=== PATIENT | male | born 1940 | race Caucasian/White ===

== ENCOUNTER 2021-11-19 16:27 | Inpatient (IN) | payer OTHER ==
[~2021-11-19] VITALS: Ht 185.4 cm; Wt 113.9 kg
[2021-11-19] MEDS ORDERED: ASPI-1420 PO (16:52)
[2021-11-19] MEDS ORDERED: METF-440 PO (16:52)
[2021-11-19] MEDS ORDERED: CHLO473M5 MM (16:52)
[2021-11-19] MEDS ORDERED: DOCU-141 PO (16:52)
[2021-11-19] MEDS ORDERED: HYDR100T27 PO (16:52)
[2021-11-19] MEDS ORDERED: LISI40TA13 PO (16:52)
[2021-11-19] MEDS ORDERED: ACET-2605 PO (16:52)
[2021-11-19] MEDS ORDERED: MINE3.5O EACHEYE (16:52)
[2021-11-19] MEDS ORDERED: MAGN400O6 PO (16:52)
[2021-11-19] MEDS ORDERED: AMLO10TA4 PO (16:52)
[2021-11-19] MEDS ORDERED: ATOR40TA PO (16:52)
[2021-11-19] MEDS ORDERED: POLY15DR40 EACHEYE (16:52)
[2021-11-19] MEDS ORDERED: CRAN425C6 PO (16:52)
[2021-11-19 17:19] LABS: BASOPHILS # (AUTO) 0.1 K/uL (0.0-0.2); BASOPHILS % (AUTO) 0.8 % (0.0-2.0); HEMATOCRIT 33 % (39-51); HEMOGLOBIN 10.8 g/dL (13.5-17.5); LYMPHOCYTES # (AUTO) 2.9 K/uL (0.8-4.8); LYMPHOCYTES % (AUTO) 20.2 % (20.0-44.0); MEAN CORPUSCULAR HGB CONC 33 g/dl (31.0-36.0); MEAN CORPUSCULAR VOLUME 86 fL (80-96); MONOCYTES # (AUTO) 1.6 K/uL (0.1-1.30); MONOCYTES % (AUTO) 11.3 % (2.0-12.0); NEUTROPHILS # (AUTO) 9.3 K/uL (1.8-8.9); NEUTROPHILS % (AUTO) 65.7 % (43.0-81.0); PLATELET COUNT (AUTO) 253 K/uL (150-450); RED BLOOD CELL COUNT(AUTO) 3.83 MIL/uL (4.5-6.0); WHITE BLOOD COUNT (AUTO) 14.1 K/uL (4.3-11.0)
[2021-11-19 17:28] LABS: BILIRUBIN,URINE NEGATIVE (NEGATIVE); COLOR,URINE YELLOW (YELLOW); LEUKOCYTE ESTERASE ,URINE NEGATIVE (NEGATIVE); NITRITE, URINE NEGATIVE (NEGATIVE); PROTEIN,URINE 100 mg/dl (NEGATIVE); UGLUCOSE NEGATIVE (NEGATIVE); UROBILINOGEN,URINE 0.2 EU/dL (0.2)
[2021-11-19 17:40] LABS: ALANINE AMINOTRANSFERASE 9 U/L (12-78); ALBUMIN 3.7 g/dL (3.4-5.0); ALKALINE PHOSPHATASE 78 U/L (46-116); ASPARTATE AMINOTRANSFERASE 14 U/L (15-37); BILIRUBIN,DIRECT 0.1 mg/dL (0.0-0.2); BILIRUBIN,TOTAL 0.4 mg/dL (0.2-1.0); CALCIUM, SERUM 9.4 mg/dL (8.5-10.1); CARBON DIOXIDE 26 mmol/L (21-32); CHLORIDE 102 mmol/L (98-107); CREATININE 1.8 mg/dL (0.6-1.3); GLUCOSE 152 mg/dL (74-106); POTASSIUM 4.6 mmol/L (3.5-5.1); SODIUM SERUM 138 mmol/L (136-145); TOTAL PROTEIN, SERUM 7.5 g/dL (6.4-8.2); UREA NITROGEN, BLOOD 33 mg/dL (7-18)
[2021-11-19] MEDS ORDERED: hydrALAZINE HCL IV 20 MG VIAL IV ONE ×2 (21:00→23:20)
[2021-11-19] MEDS ORDERED: hydrALAZINE HCL IV 20 MG VIAL ONE (21:03)
[2021-11-19] MEDS ORDERED: hydrALAZINE HCL IV 20 MG VIAL IV PRN (21:30)
[2021-11-19] MEDS ORDERED: ACETAMINOPHEN 325 MG TABLET PO PRN (21:30)
[2021-11-19] MEDS ORDERED: ONDANSETRON HCL/PF 4 MG/2 ML VIAL IVP PRN (21:30)
[2021-11-19] MEDS ORDERED: MORPHINE SULFATE INJ 2 MG/ML DISP.SYRIN IV PRN (21:30)
[2021-11-19] MEDS ORDERED: Z GUARD REMEDY 4 OZ OINT TP PRN (21:30)
[2021-11-19 22:27] VITALS: BP 179/65
[2021-11-19 22:30] VITALS: BP 195/114
[2021-11-19 23:00] VITALS: BP 209/80
[2021-11-19 23:30] VITALS: BP 216/99
[2021-11-20] VITALS (63 sets, daily range): BP systolic 115–196; BP diastolic 51–118
[2021-11-20] MEDS ORDERED: CLONIDINE HCL 0.1 MG TABLET PO PRN (01:00)
[2021-11-20] MEDS ORDERED: ACETAMINOPHEN ES 500 MG TABLET PO PRN (01:00)
[2021-11-20] MEDS ORDERED: DEXTROSE 50%-WATER 50 ML DISP.SYRIN IV PRN (01:00)
[2021-11-20] MEDS ORDERED: MAGNESIUM HYDROXIDE 30 ML UDC PO PRN (01:00)
[2021-11-20] MEDS: LOSARTAN POTASSIUM 50 MG TABLET PO SCH ×2 (01:06→08:12)
[2021-11-20 04:20] LABS: BASOPHILS # (AUTO) 0.1 K/uL (0.0-0.2); BASOPHILS % (AUTO) 0.9 % (0.0-2.0); EOSINOPHILS % (AUTO) 3.9 % (0.0-6.0); HEMATOCRIT 32 % (39-51); HEMOGLOBIN 10.7 g/dL (13.5-17.5); LYMPHOCYTES # (AUTO) 2.4 K/uL (0.8-4.8); LYMPHOCYTES % (AUTO) 23.7 % (20.0-44.0); MEAN CORPUSCULAR HGB CONC 33 g/dl (31.0-36.0); MEAN CORPUSCULAR VOLUME 87 fL (80-96); MONOCYTES # (AUTO) 1.2 K/uL (0.1-1.30); MONOCYTES % (AUTO) 11.3 % (2.0-12.0); NEUTROPHILS # (AUTO) 6.1 K/uL (1.8-8.9); NEUTROPHILS % (AUTO) 60.2 % (43.0-81.0); PLATELET COUNT (AUTO) 258 K/uL (150-450); RED BLOOD CELL COUNT(AUTO) 3.71 MIL/uL (4.5-6.0); WHITE BLOOD COUNT (AUTO) 10.2 K/uL (4.3-11.0)
[2021-11-20 04:34] LABS: CALCIUM, SERUM 9.1 mg/dL (8.5-10.1); CARBON DIOXIDE 28 mmol/L (21-32); CHLORIDE 104 mmol/L (98-107); CREATININE 1.6 mg/dL (0.6-1.3); GLUCOSE 140 mg/dL (74-106); MAGNESIUM 1.9 mg/dL (1.8-2.4); PHOSPHORUS 4.2 mg/dL (2.5-4.9); POTASSIUM 3.8 mmol/L (3.5-5.1); SODIUM SERUM 140 mmol/L (136-145); UREA NITROGEN, BLOOD 31 mg/dL (7-18)
[2021-11-20 04:47] LABS: THYROID STIMULATING HORMONE 7.542 uIU/mL (0.358-3.74)
[2021-11-20] MEDS: BLOOD SUGAR DIAGNOSTIC 1 EACH STRIP IN SCH ×4 (08:05→21:21)
[2021-11-20] MEDS: LISINOPRIL (20MG) 20 MG TABLET PO SCH (08:12)
[2021-11-20] MEDS: CHLORHEXIDINE GLUCONATE 15 ML UDC MM SCH (08:13)
[2021-11-20] MEDS: DOCUSATE SODIUM 100 MG CAPSULE PO SCH (08:13)
[2021-11-20] MEDS: POLYVINYL ALCOHOL 15 ML BOTTLE EACHEYE SCH ×2 (08:13→17:23)
[2021-11-20] MEDS: METFORMIN 500 MG TABLET PO SCH ×2 (08:19→17:23)
[2021-11-20] MEDS: AMLODIPINE BESYLATE 10 MG TABLET PO SCH (08:25)
[2021-11-20] MEDS: INSULIN REGULAR, HUMAN 100 UNIT/ML 3 ML VIAL SQ PRN ×3 (08:28→21:21)
[2021-11-20] MEDS: ASPIRIN EC 81 MG TABLET.DR PO SCH (08:44)
[2021-11-20] MEDS ORDERED: Medication Not On Formulary EA (Cranberry Extract (Cranberry) 425 MG) PO SCH (09:00)
[2021-11-20] MEDS ORDERED: hydrALAZINE HCL 50 MG TABLET PO SCH (09:00)
[2021-11-20] MEDS ORDERED: PANTOPRAZOLE 40 MG VIAL IV SCH (09:00)
[2021-11-20] MEDS: NITROGLYCERIN 30 GM TUBE TP SCH ×2 (10:02→21:06)
[2021-11-20] MEDS ORDERED: LIDOCAINE 1% INJ 50 ML MDV IJ ONE (10:51)
[2021-11-20] MEDS ORDERED: IOHEXOL 240MG/ML 0 ML IV ONE (10:51)
[2021-11-20] MEDS ORDERED: ANESTHESIA TRAY IN PYXIS 1 EA TRAY MC ONE (10:52)
[2021-11-20] MEDS ORDERED: MIDAZOLAM HCL 2 MG/2ML VIAL ONE (11:42)
[2021-11-20] MEDS ORDERED: FENTANYL PF 100MCG/2ML AMPUL ONE (11:42)
[2021-11-20] MEDS: hydrALAZINE HCL 50 MG TABLET PO SCH ×2 (14:09→17:25)
[2021-11-20] MEDS ORDERED: ATORVASTATIN 40 MG TABLET PO SCH (22:00)
[2021-11-20] MEDS ORDERED: SIMVASTATIN 10 MG TABLET PO SCH (22:00)
[2021-11-20] MEDS ORDERED: LANOLIN/MIN OIL/PETROLAT,WHT 3.5 GM TUBE EACHEYE SCH (22:00)
[2021-11-21] VITALS (19 sets, daily range): BP systolic 128–167; BP diastolic 61–84
[2021-11-21] MEDS: BLOOD SUGAR DIAGNOSTIC 1 EACH STRIP IN SCH ×3 (07:49→16:31)
[2021-11-21] MEDS: LISINOPRIL (20MG) 20 MG TABLET PO SCH (08:08)
[2021-11-21] MEDS: METFORMIN 500 MG TABLET PO SCH (08:08)
[2021-11-21] MEDS: CHLORHEXIDINE GLUCONATE 15 ML UDC MM SCH (08:08)
[2021-11-21] MEDS: AMLODIPINE BESYLATE 10 MG TABLET PO SCH (08:09)
[2021-11-21] MEDS: DOCUSATE SODIUM 100 MG CAPSULE PO SCH (08:09)
[2021-11-21] MEDS: ASPIRIN EC 81 MG TABLET.DR PO SCH (08:09)
[2021-11-21] MEDS: hydrALAZINE HCL 50 MG TABLET PO SCH ×3 (08:09→16:31)
[2021-11-21] MEDS: POLYVINYL ALCOHOL 15 ML BOTTLE EACHEYE SCH (08:10)
[2021-11-21] MEDS ORDERED: PANTOPRAZOLE 40 MG TABLET.DR PO SCH (08:15)
[2021-11-21] MEDS: NITROGLYCERIN 30 GM TUBE TP SCH (08:29)
[2021-11-21] MEDS ORDERED: APIX5TAB PO (08:31)
[2021-11-21] MEDS ORDERED: HYDR-4077 PO (08:31)
[2021-11-21] MEDS: APIXABAN 5 MG TABLET PO SCH ×2 (08:40→16:30)
[2021-11-21] MEDS: INSULIN REGULAR, HUMAN 100 UNIT/ML 3 ML VIAL SQ PRN (13:16)
== END 2021-11-21 16:56 | DRG 242 ==
LOC: ER 16:30 → ICU 20:58
PROVIDERS: ADMIT Registered Nurse; ATTEND Internal Medicine
PROC: 05H533Z Insertion of Infusion Device into Right Subclavian Vein, Percutaneous Approach (ICD-10-PCS; 2021-11-19)
PROC: B546ZZA Ultrasonography of Right Subclavian Vein, Guidance (ICD-10-PCS; 2021-11-19)
PROC: 0JH606Z Insertion of Pacemaker, Dual Chamber into Chest Subcutaneous Tissue and Fascia, Open Approach (ICD-10-PCS; principal; 2021-11-20)
PROC: 02HK3JZ Insertion of Pacemaker Lead into Right Ventricle, Percutaneous Approach (ICD-10-PCS; 2021-11-20)
PROC: 02H63JZ Insertion of Pacemaker Lead into Right Atrium, Percutaneous Approach (ICD-10-PCS; 2021-11-20)
DX: I44.2 Atrioventricular block, complete (principal); N17.0 Acute kidney failure with tubular necrosis; G93.49 Other encephalopathy; I16.1 Hypertensive emergency; I48.91 Unspecified atrial fibrillation; I50.9 Heart failure, unspecified; E11.9 Type 2 diabetes mellitus without complications; E66.9 Obesity, unspecified; F20.9 Schizophrenia, unspecified; I11.0 Hypertensive heart disease with heart failure; Z68.39 Body mass index [BMI] 39.0-39.9, adult; Z86.73 Personal history of transient ischemic attack (TIA), and cerebral infarction without residual deficits; Z79.84 Long term (current) use of oral hypoglycemic drugs; D64.9 Anemia, unspecified; Z20.822 Contact with and (suspected) exposure to COVID-19
CPT/HCPCS: 36415; 70450-TC; 71045-TC; 76770-TC; 80048-TC; 80076-TC; 80162-TC; 82962-TC; 83735-TC; 83880; 84100-TC; 84439-TC; 84443-TC; 84481; 84484-TC; 85025-TC; 85610-TC; 86850-TC; 87081-TC; 87086-TC; 93307-TC; 93970-TC; 97116-TC; 97530-TC; C1786; C9113; C9803; G0378; J0360; J0690; J1815; J2250; J3010; J3490; J7030; Q9966